=== PATIENT | male | born 1970 | race Native Hawaiian/Other Pacific Islander ===

== ENCOUNTER 2017-10-31 08:42 | Outpatient (CLI) | payer OTHER | END 2017-10-31 19:42 | disposition home or self-care (01) | LOC: US 08:42 | DX: M54.89 Other dorsalgia (principal); R07.89 Other chest pain ==

== ENCOUNTER 2018-03-07 12:01 | Outpatient (CLI) | payer OTHER ==
[2018-03-07 12:49] LABS: PLATELET COUNT 170 K/uL (142-355)
[2018-03-07 13:44] LABS: POTASSIUM 4.5 mmol/L (3.6-5.2)
== END 2018-03-07 22:19 | disposition home or self-care (01) ==
LOC: US 12:01
PROVIDERS: Nurse Practitioner Family
DX: K59.00 Constipation, unspecified (principal); R10.11 Right upper quadrant pain; R10.12 Left upper quadrant pain
CPT/HCPCS: 36415; 74022; 80053; 82150; 83690; 85027; 86677

== ENCOUNTER 2018-03-09 10:21 | Outpatient (CLI) | payer OTHER | END 2018-03-09 20:13 | disposition home or self-care (01) | LOC: CT 10:21 | DX: R10.32 Left lower quadrant pain (principal); R10.11 Right upper quadrant pain; R11.0 Nausea | CPT/HCPCS: Q9963 ==

== ENCOUNTER 2018-05-29 11:10 | Outpatient (CLI) | payer OTHER | END 2018-05-29 19:14 | disposition home or self-care (01) | LOC: US 11:10 | DX: R10.11 Right upper quadrant pain (principal); R11.0 Nausea | CPT/HCPCS: 36415; 80076 ==